=== PATIENT | female | born 1955 | race Caucasian/White ===

== ENCOUNTER 2017-04-28 18:33 | Emergency (ER) | payer BC ==
[2017-04-28 18:40] VITALS: BP 133/68
--- NOTE | 2017-04-28 19:27 | UC ---
Skin Complaint HPI - HPI Summary HPI Summary: Tick bite to left hip she believes it was engorged and she is unsure how long the tick was attached for possibly longer than 26 hours - History of Current Complaint Chief Complaint: [employer] Time Seen by Provider: 04/28/17 19:25 Stated Complaint: tick bite Hx Obtained From: Patient ?: No Onset/Duration: Sudden Onset, Lasting Days Timing: Constant Onset Severity: Mild Current Severity: None Location: Discrete - left hip Character: Swelling, Pruritus, Pain, Redness, Painful Aggravating: Nothing Alleviating: Nothing Associated Signs & Symptoms: Positive: Negative Related History: Insect Bite/Sting - Allergy/Home Medications Allergies/Adverse Reactions: Allergies Allergy/AdvReac Type Severity Reaction Status Date / Time No Known Allergies Allergy Verified 12/18/14 09:14 Review of Systems Constitutional: Negative Skin: Negative Eyes: Negative ENT: Negative Respiratory: Negative Cardiovascular: Negative Gastrointestinal: Negative Genitourinary: Negative Motor: Negative Neurovascular: Negative Musculoskeletal: Negative Neurological: Negative Psychological: Negative All Other Systems Reviewed And Are Negative: Yes PMH/Surg Hx/FS Hx/Imm Hx Previously Healthy: Yes Endocrine History: Hypothyroidism - Surgical History Surgical History: Yes Surgery Procedure, Year, and Place: LEFT LUMPECTOMY X 2. BIOPSY RIGHT BREAST- LOCAL. [place]03/[place] [place] [facility] [place] Family History Known Family History: Positive: None Family History: no reported cardio vascular issues in family lineage - Social History Occupation: Employed Part-time Lives: With Family Alcohol Use: Rare Alcohol Amount: 4 DRINKS A YEAR Substance Use Type: None Smoking Status (MU): Never Smoked Tobacco Physical Exam Triage Information Reviewed: Yes Appearance: Well-Appearing, No Pain Distress, Well-Nourished Vital Signs: Initial Vital Signs Temp 98.6 F 04/28/17 18:37 Pulse 65 04/28/17 18:37 Resp 18 04/28/17 18:37 BP 133/68 04/28/17 18:37 Pulse Ox 95 04/28/17 18:37 Vital Signs Reviewed: Yes Eye Exam: Normal Eyes: Positive: Conjunctiva Clear ENT Exam: Normal ENT: Positive: Normal ENT inspection, Hearing grossly normal. Negative: Nasal congestion, Nasal drainage, Trismus, Muffled/hoarse voice Dental Exam: Normal Neck exam: Normal Neck: Positive: Supple, Nontender, No Lymphadenopathy Respiratory Exam: Normal Respiratory: Positive: Chest non-tender, Lungs clear, Normal breath sounds, No respiratory distress, No accessory muscle use Cardiovascular Exam: Normal Cardiovascular: Positive: RRR, No Murmur, Pulses Normal, Brisk Capillary Refill Musculoskeletal Exam: Normal Musculoskeletal: Positive: Strength Intact, ROM Intact, No Edema Neurological Exam: Normal Neurological: Positive: Alert, Muscle Tone Normal Psychological Exam: Normal Skin Exam: Normal Skin: Positive: Other - small amount of erythema at bite site Course/Dx - Course Course Of Treatment: Doxycyclie 200mg times one, soap and water wash, observe for s/s of Lyme - Differential Diagnoses - Skin Complaint Differential Diagnoses: Impetigo, Local Allergic Reaction, Tick Born Illness - Diagnoses Provider Diagnoses: tick Bite, Lyme PEP Discharge - Discharge Plan Condition: Stable Disposition: HOME Patient Education Materials: Doxycycline (By mouth), Tick Bite (ED) Referrals: Renetta Stoll MD [Primary Care Provider] - If Needed
[2017-04-28] MEDS ORDERED: DOXYcycline CAP(*) 100 MG PO ONE (19:32)
== END 2017-04-28 19:40 | disposition home or self-care (01) ==
LOC: UCEAST 18:33
DX: S70.262A Insect bite (nonvenomous), left hip, initial encounter (principal); W57.XXXA Bitten or stung by nonvenomous insect and other nonvenomous arthropods, initial encounter; Y93.9 Activity, unspecified; Y92.9 Unspecified place or not applicable; E03.9 Hypothyroidism, unspecified
CPT/HCPCS: 99212; A9270-GY; G0463